=== PATIENT | female | born 1955 | race Caucasian/White ===

== ENCOUNTER 2017-02-03 07:49 | Day surgery (SDC) | payer BC ==
[~2017-02-03] VITALS: Ht 154.9 cm; Wt 62.6 kg
[~2017-02-03 07:49] MED LIST: CHOL200013 PO; ESCI10TA PO; MULT-40 PO
[2017-02-03 08:42] VITALS: BP 103/67
[2017-02-03] MEDS ORDERED: SODIUM CHLORIDE 0.9% 1000ML 1,000 ML IV ONE ×2 (09:13→09:26)
[2017-02-03] MEDS ORDERED: PROPOFOL 10 MG/ML 20ML VIAL IV ONE (09:54)
[2017-02-03] MEDS ORDERED: FENTANYL CITRATE PF 50 MCG/1 ML 2ML VIAL ONE (10:00)
== END 2017-02-03 10:41 ==
LOC: ENDO 07:49 → DAH 07:49 → ENDO 10:41
PROVIDERS: ATTEND Internal Medicine Gastroenterology
DX: Z09 Encounter for follow-up examination after completed treatment for conditions other than malignant neoplasm (principal); D12.0 Benign neoplasm of cecum; K21.9 Gastro-esophageal reflux disease without esophagitis; F32.9 Major depressive disorder, single episode, unspecified; Z82.49 Family history of ischemic heart disease and other diseases of the circulatory system; Z83.3 Family history of diabetes mellitus; Z86.010 Personal history of colon polyps
CPT/HCPCS: 45380; 88305; A4606; J2704; J3010; J7030 ×2